=== PATIENT | male | born 1960 | race Caucasian/White ===

== ENCOUNTER 2021-03-16 21:08 | Emergency (ER) | payer MEDICARE, MEDICAID, SELFPAY ==
[2021-03-16 21:20] VITALS: BP 141/82; PULSE 75; RESP 18; TEMP 36.9; O2SAT 99; BMI 39.3
[2021-03-16 21:35] VITALS: BP 151/104; PULSE 70; RESP 15; O2SAT 100
[2021-03-16 21:41] VITALS: PULSE 60; O2SAT 98
--- NOTE | 2021-03-16 21:41 | W.ED.ABDPA2 ---
HPI - Abdominal Pain General: Chief Complaint: Abdominal Pain Stated Complaint: ABD PAIN Time Seen by Provider: 03/16/21 21:22 Source: patient and EMS Mode of arrival: EMS Limitations: no limitations History of Present Illness: HPI narrative: 60-year-old male states that roughly 3 4 hours ago started having sudden onset of lower abdominal pain. States like a bandlike pain over his lower abdomen. States pain is currently 6 out of 10. He had some nausea no vomiting. Denies any worsening improving factors. He denies any history of pain like this. Denies any chest pain. Associated Symptoms: Reports nausea; Denies chills, dysuria and fever(s) Review of Systems Const: Denies: fever(s), chills, body aches or change in appetite Eyes: Denies: blurry vision or eye discomfort ENMT: Denies: throat pain or dental pain Card: Denies: chest pain Resp: Denies: dyspnea GI: Reports: abdominal pain and nausea : Denies: dysuria Musc: Denies: neck pain or back pain Skin/Breast: Denies: rash Neuro: Denies: headache(s) Psych: Denies: depression Pola/Lymph: Denies: easy bruising All/Imm: Denies: urticaria Physical Exam Const: COMMON NORMALS: no acute distress, patient oriented x3 and healthy appearing HENMT: COMMON NORMALS: normocephalic and atraumatic HEAD & SCALP: normocephalic and atraumatic Eye: COMMON NORMALS: Equal, round and reactive pupils present and EOMs intact bilaterally PUPIL: Yes Equal, round and reactive pupils present Neck/C-Spine: COMMON NORMALS: full ROM and supple Chest: COMMONS NORMALS: normal inspection of the chest and normal palpation of entire chest wall Resp: COMMON NORMALS: normal respiratory effort, No retractions, No use of accessory muscles and clear to auscultation bilaterally AUSCULTATION: clear to auscultation bilaterally Cardio: COMMON NORMALS: regular rate, regular rhythm and No murmurs present (Cardio) RATE: regular rate RHYTHM: regular rhythm GI: COMMON NORMALS: Normal to inspection, nondistended, normoactive bowel sounds present, Soft to palpation, non-tender and no masses PALPATION: Yes Soft to palpation and Yes Tenderness to palpation present (GI) (lower abd tendnerness) Extremity: COMMON NORMALS: normal to inspection and full ROM Neuro: COMMON NORMALS: patient oriented x3, moves all extremities and no focal motor deficits Psych: COMMON NORMALS: mental status grossly normal, Normal thought process present and cooperative THOUGHT PROCESS: Normal thought process present Skin: COMMON NORMALS: no rashes or lesions noted and no wounds GENERAL SKIN EXAM: no rashes or lesions noted Course Vital Signs: Vital signs: Vital Signs Temperature 98.4 F 03/16/21 21:20 Pulse Rate 77 03/16/21 23:00 Respiratory Rate 16 03/16/21 23:00 Blood Pressure 151/86 03/16/21 23:00 Pulse Oximetry 98 03/16/21 23:00 MDM - Abdominal Pain MDM Narrative: Medical decision making narrative: Patient presents here with kidney stone likely causing his pain. His pain is much improved here. Patient's also may be had a slight urinary tract infection. He has no signs of pyelonephritis here. He has no fever no white count. We will start him on antibiotics spoke to urologist will have him follow-up with urology and 1 to 2 days. Lab Data: Labs: Lab Results 03/16/21 03/16/21 03/16/21 Range/Units 21:52 21:52 22:41 WBC 6.5 (4.0-10.0) 10^3/ uL RBC 5.36 H (4.1-5.3) 10^6/u L Hgb 16.4 (11.7-16.6) g/dL Hct 48.0 (42.0-52.0) % MCV 89.6 (80-94) fL MCH 30.6 (28.0-34.0) pg MCHC 34.2 (30.0-36.0) g/dL RDW 12.5 (12.1-15.1) % Plt Count 179 (130-400) 10^3/c mm MPV 10.4 (7.4-10.4) fL Neut % (Auto) 85.4 % Lymph % (Auto) 8.1 % [place] % (Auto) 5.7 % Eos % (Auto) 0.2 % Baso % (Auto) 0.3 % Neut # (Auto) 5.58 (1.8-7.7) 10^3/u L Lymph # (Auto) 0.5 L (0.8-4.8) 10^3/u L [place] # (Auto) 0.4 (0.2-0.9) 10^3/u L Eos # (Auto) 0.0 (0.0-0.8) 10^3/u L Baso # (Auto) 0.0 (0.0-0.1) 10^3/u L Nucleated RBC % (a uto) 0 % Nucleated RBCs # 0.0 /100WBC Sodium 139 (136-145) mmol/L Potassium 4.2 (3.5-5.1) mmol/L Chloride 103 (98-107) mmol/L Carbon Dioxide 23 (22-29) mmol/L Anion Gap 17.2 (5-19) BUN 12 (8-23) mg/dL Creatinine 1.1 (0.7-1.2) mg/dL GFR Calculation 68.3 L (90-130) mL/min Glucose 144 H (65-115) mg/dL Calculated Osmolal ity 290 (285-295) mOsm/k g Calcium 8.8 (8.5-10.5) mg/dL Total Bilirubin 0.7 (0.15-1.2) mg/dL AST 22 (0-40) U/L ALT 18 (0-41) U/L Alkaline Phosphata se 88 (40-130) IU/L Total Protein 6.5 L (6.6-8.7) g/dL Albumin 4.3 (3.5-5.2) g/dL Globulin 2.2 (1.3-4.6) g/dL Lipase 25 (13-60) U/L Urine Color Yellow (Yellow) Urine Appearance Sl hazy (CLEAR) Urine pH 9 H (5-7) Ur Specific Gravit y 1.015 (1.005-1.030) Urine Protein Neg (Negative) Urine Glucose (UA) Trace H (Normal) Urine Ketones 2+ H (Negative) Urine Blood 3+ H (Negative) Urine Nitrate Negative (Negative) Urine Bilirubin Neg (Negative) Prot Sulfosalicyli c Acd Negative (Negative) Urine Urobilinogen Norm (Negative) mg/dL Ur Leukocyte Zahraa ase Negative (Negative) Urine RBC >100 H (0-2) /hpf Urine WBC 0-4 H (0-5) /hpf Ur Squamous Epith Cells 0-4 H (0-5) /hpf Amorphous Sediment Not Reportable Urine Bacteria 3+ H (NONE) /hpf Imaging Data ^: CT Abd/Pel: Attestation: I personally reviewed and interpreted this imaging study as follows: Radiologist's impression: [facility] [place] [address] CT Scan Report Signed Patient: Mello Taveras Unit #: [id number] : 1960 Age/Sex: 60 / M ADM Date: 03/16/21 Loc: ER Room/Bed: Attending Dr: Ordering Provider/Ordering MD: Anish Lemus MD Date of Service: 03/16/21 Procedure(s): CT abdomen pelvis w con* [id number] Accession Number(s): [id number] Report Number: [id number] PROCEDURE INFORMATION: Exam: CT Abdomen And Pelvis With Contrast Exam date and time: 03/16/2021 9:43 PM Age: 60 years old Clinical indication: Abdominal pain; Localized; Left lower quadrant (llq); Patient HX: C/O llq abd pain and nausea TECHNIQUE: Imaging protocol: Computed tomography of the abdomen and pelvis with contrast. Radiation optimization: All CT scans at this facility use at least one of these dose optimization techniques: automated exposure control; mA and/or kV adjustment per patient size (includes targeted exams where dose is matched to clinical indication); or iterative reconstruction. Contrast material: OMNI 300; Contrast volume: 95 ml; Contrast route: INTRAVENOUS (IV); COMPARISON: No relevant prior studies available. RADIATION DOSE METRICS: Total DLP (mGy-cm): 1831.5 FINDINGS: Lungs: Bibasilar atelectasis. Liver: Normal. No mass. Gallbladder and bile ducts: Normal. No calcified stones. No ductal dilation. Pancreas: Normal. No ductal dilation. Spleen: Normal. No splenomegaly. Adrenal glands: Normal. No mass. Kidneys and ureters: Left proximal ureter 3.4 mm calculus with mild to moderate hydronephrosis and hydroureter with associated moderate nonlocalized perinephric fluid perhaps reflecting associated pyelonephritis. Stomach and bowel: Constipation. Appendix: No evidence of appendicitis. Intraperitoneal space: Unremarkable. No free air. No significant fluid collection. Vasculature: Unremarkable. No abdominal aortic aneurysm. Lymph nodes: Unremarkable. No enlarged lymph nodes. Urinary bladder: Unremarkable as visualized. Reproductive: Unremarkable as visualized. Bones/joints: Unremarkable. No acute fracture. Soft tissues: Left inguinal fat containing small hernia. CT/CT abdomen pelvis w con* [id number] IMPRESSION: 1. Left proximal ureter 3.4 mm calculus with mild to moderate hydronephrosis and hydroureter with associated moderate nonlocalized perinephric fluid perhaps reflecting associated pyelonephritis. 2. Constipation. 3. Left inguinal fat containing small hernia. 4. Bibasilar atelectasis. Radiation Dose CTDIVOL = (mGy): DLP = 1831.5 (mGy-cm) Dictated By: Ellis Wyatt MD Signed By: Ellis Wyatt MD Signed Date/Time: 03/16/21 233 EKG Data ^: EKG 1: Attestation: I personally reviewed and interpreted this EKG as follows: EKG interpretation date: 03/16/21 EKG interpretation time: 21:37 Interpretation: nsr hr [address] or t wave abnormalities qrs 102 qtc 439 Discharge Plan Discharge Patient Disposition: Home Clinical Impression: Kidney stone, Cystitis Condition: Stable Prescriptions: New hydrocodone-acetaminophen 5-325 mg tablet 1 tab PO Q6H PRN (Reason: pain) Qty: 14 RF: 0 ondansetron 4 mg tablet,disintegrating 4 mg PO Q6H PRN (Reason: nausea and vomiting) Qty: 14 RF: 0 Cipro 500 mg tablet 500 mg PO Q12H Qty: 10 RF: 0 Discharge Orders: Discharge ED (Routine); Ordered 03/16/21 Ordered By: Anish Lemus Referrals: Marvin Kearns [Primary Care Provider] - Cy Castellano MD [Physician] - 1-3 days Discharge Diet: Advance as tolerated Discharge Activity: Resume usual activity Patient Instructions: Kidney Stones (ED), Opioid Safety Coding Level of Care Code ED Clinical Manager Home [facility] for [facility] Fwd Exam Comprehensive
[2021-03-16 21:50] VITALS: RESP 14
[2021-03-16] MEDS: morphine 4 mg/mL SDV 1 mL IVP (21:50)
[2021-03-16] MEDS: ondansetron 2 mg/ML SDV 2 mL 4 MG IVP (21:50)
[2021-03-16] MEDS: sodium chloride 0.9% 1,000 ML 999 ML IV (21:51)
[2021-03-16 21:58] LABS: Basophils % 0.3 %; Eosinophils % 0.2 %; Hemoglobin 16.4 g/dL (11.7-16.6); Lymphocytes # 0.5 10^3/uL (0.8-4.8); Lymphocytes % 8.1 %; Mean Corpuscular HGB Conc 34.2 g/dL (30.0-36.0); Mean Corpuscular Hemoglobin 30.6 pg (28.0-34.0); Mean Corpuscular Volume 89.6 fL (80-94); Mean Platelet Volume 10.4 fL (7.4-10.4); Monocytes # 0.4 10^3/uL (0.2-0.9); Monocytes % 5.7 %; Neutrophils # 5.58 10^3/uL (1.8-7.7); Neutrophils % 85.4 %; Nucleated Red Blood Cells % 0 %; Platelet Count 179 10^3/cmm (130-400); Red Blood Count 5.36 10^6/uL (4.1-5.3); Red Cell Distribution Width 12.5 % (12.1-15.1); White Blood Count 6.5 10^3/uL (4.0-10.0)
[2021-03-16 22:00] VITALS: BP 144/88; PULSE 66; RESP 16; O2SAT 100; O2SAT 99
[2021-03-16 22:14] LABS: Alanine Aminotransferase 18 U/L (0-41); Albumin Level 4.3 g/dL (3.5-5.2); Alkaline Phosphatase 88 IU/L (40-130); Anion Gap 17.2 (5-19); Aspartate Amino Transferase 22 U/L (0-40); Blood Urea Nitrogen 12 mg/dL (8-23); Calcium 8.8 mg/dL (8.5-10.5); Carbon Dioxide 23 mmol/L (22-29); Chloride 103 mmol/L (98-107); Globulin 2.2 g/dL (1.3-4.6); Glomerular Filtration Rate 68.3 mL/min (90-130); Glucose 144 mg/dL (65-115); Lipase 25 U/L (13-60); Osmolality Calculated 290 mOsm/kg (285-295); Potassium 4.2 mmol/L (3.5-5.1); Sodium 139 mmol/L (136-145); Total Bilirubin 0.7 mg/dL (0.15-1.2); Total Protein 6.5 g/dL (6.6-8.7)
[2021-03-16] MEDS: iohexol 300 mg/mL 100 mL Btl IV (22:52)
[2021-03-16 23:00] VITALS: BP 151/86; PULSE 77; RESP 16; O2SAT 98
[2021-03-16 23:01] LABS: Add Urine Microscopic? YES; Bilirubin Urine Neg (Negative); Blood Urine 3+ (Negative); Glucose Urine UA Trace (Normal); Ketones Urine 2+ (Negative); Leukocyte Esterase Urine Negative (Negative); Nitrate Urine Negative (Negative); Protein Urine Neg (Negative); Specific Gravity, Urine 1.015 (1.005-1.030); Sulfosalicylic Acid Urine Negative (Negative); Urine Appearance SL Hazy (CLEAR); Urine Color Yellow (Yellow); Urobilinogen Urine Norm (Negative); pH Urine 9 (5-7)
[2021-03-16 23:03] LABS: Add Urine Culture? Yes; Bacteria Urine 3+ /hpf; RBC Urine >100 /hpf (0-2); Squamous Epithelial Cell Urine 0-4 /hpf (0-5); WBC Urine 0-4 /hpf (0-5)
[2021-03-16] MEDS: ciprofloxacin 400 MG/200 ML PREMIX 200 MG IV (23:15)
[2021-03-17] MEDS: HYDROcodone-acetaminophen 5-325 mg Tablet 1 TAB PO (01:00)
[2021-03-17 01:08] VITALS: BP 181/94; PULSE 69; RESP 29; O2SAT 95
--- NOTE | 2021-03-17 09:32 | DCPLANNER ---
teaching manager had message to schedule a follow up appointment for patient with Dr. Castellano. teaching manager called the office of Dr. Castellano, spoke with Rasheed, gave clinic patients information. teaching manager was told that patients information would be printed and reviewed. Clinic will call patient with appointment information.
--- NOTE | 2021-03-18 07:43 | DCPLANNER ---
Patient had a follow up appointment scheduled for 03.18.21 at 8;[address] Castellano - patient did attend appointment.
== END 2021-03-17 01:10 | disposition home or self-care (01) ==
PROVIDERS: Emergency Provider Emergency Medicine; PCP Internal Medicine
DX: N30.90 Cystitis, unspecified without hematuria (principal); N20.0 Calculus of kidney
CPT/HCPCS: 74177; 80053; 81001; 83690; 85025; 87086; 96365; 96375; 99284; J0744; J2270; J2405; J7030; Q9967

== ENCOUNTER 2021-03-18 06:18 | Outpatient (CLI) | payer MEDICARE, MEDICAID, SELFPAY ==
--- NOTE | 2021-03-18 06:34 | XR_ITS ---
WS: [id number] KUB, AP view, 03/19/2021 Clinical Data: STONES Comparison: CT abdomen and pelvis, 03/16/2021. Findings: No abnormal intraabdominal masses or calcifications are seen. There is a large amount of dilated smal l bowel. The previously noted left ureteral calculus may be obscured by the overlying colon gas.The b ladder is partly full and there is a fecal impaction. There are prostatic calcifications. XR/XR KUB [id number] Impression: 1. Generalized ileus. 2. Probable left ureteral calculus obscured by overlying intestinal gas.
== END 2021-03-18 06:19 | disposition home or self-care (01) ==
LOC: RAD 06:25
PROVIDERS: PCP Internal Medicine; Visit Provider Urology
DX: N20.0 Calculus of kidney (principal)
CPT/HCPCS: 74018

== ENCOUNTER 2021-03-21 07:23 | Outpatient (CLI) | payer MEDICAID, SELFPAY ==
--- NOTE | 2021-03-21 07:45 | XR_ITS ---
WS: [id number] KUB, AP view, 03/21/2021 Clinical Data: stone Comparison: KUB, 03/18/2021. Findings: No abnormal intraabdominal masses or calcifications are seen. There is no dilatated small bowel or ev idence of obstruction. The small bowel and colon gas have diminished significantly. Again a proximal left ureteral calculus is not seen on this examination. XR/XR KUB [id number] Impression: Negative KUB.
== END 2021-03-21 07:24 | disposition home or self-care (01) ==
LOC: RAD 07:30
PROVIDERS: PCP Internal Medicine; Visit Provider Urology
DX: N20.0 Calculus of kidney (principal)
CPT/HCPCS: 74018; 81003

== ENCOUNTER → 2021-03-24 08:27 | Outpatient (BNVA) | payer MEDICAID, SELFPAY | PROVIDERS: PCP Internal Medicine; Visit Provider Urology | DX: N20.1 Calculus of ureter (principal) | CPT/HCPCS: 82365; 88300 ==

== ENCOUNTER 2021-04-10 06:31 | Outpatient (CLI) | payer MEDICAID, SELFPAY ==
--- NOTE | 2021-04-10 07:00 | XR_ITS ---
WS: [id number] KUB, AP view, 04/10/2021 Clinical Data: ureteral stone Comparison: KUB, 03/21/2021. Findings: No abnormal intraabdominal masses or calcifications are seen. There is no dilatated small bowel or ev idence of obstruction. There is a large amount of fecal material throughout the colon. There are prostatic calcifications. XR/XR KUB [id number] Impression: Large amount of fecal material throughout the colon.
== END 2021-04-10 06:32 | disposition home or self-care (01) ==
LOC: RAD 06:34
PROVIDERS: PCP Internal Medicine; Visit Provider Urology
DX: N20.1 Calculus of ureter (principal)
CPT/HCPCS: 74018; 81003

== ENCOUNTER 2022-04-09 06:33 | Outpatient (CLI) | payer MEDICARE, MEDICAID, SELFPAY ==
--- NOTE | 2022-04-09 06:44 | XR_ITS ---
WS: [id number] Exam: XR KUB [id number] Date/Time of Exam: 04/09/2022 6:44 AM Reason For Exam: stone No bowel obstruction or free air. No sign of organ enlargement. Large amount of stool in the right co kofi. Bony structures are intact. XR/XR KUB [id number] IMPRESSION: 1. No acute abdominal finding.
== END 2022-04-09 06:34 | disposition home or self-care (01) ==
LOC: RAD 06:34
PROVIDERS: PCP Internal Medicine; Visit Provider Urology
DX: N20.1 Calculus of ureter (principal); N20.9 Urinary calculus, unspecified
CPT/HCPCS: 74018; 81003; 99213